=== PATIENT | male | born 2000 | race Asian ===

== ENCOUNTER 2020-11-27 10:26 | Emergency (ER) | payer OTHER ==
[~2020-11-27] VITALS: Ht 175.3 cm; Wt 61.2 kg
[2020-11-27 10:38] VITALS: BP 133/71
--- NOTE | 2020-11-27 10:41 | NUR ---
PT TAKEN TO LOBBY TO WAIT.
--- NOTE | 2020-11-27 12:18 | NUR ---
PATIENT AMBULATED TO BED 4.
--- NOTE | 2020-11-27 12:46 | NUR ---
NO NURSING INTERVENTIONS PROVIDED
--- NOTE | 2020-11-27 12:47 | NUR ---
Patient discharged with v/s stable. Written and verbal after care instructions given and explained. Patient verbalized understanding. Ambulatory with steady gait. All questions addressed prior to discharge. Advised to follow up with PMD.
== END 2020-11-27 12:47 | disposition home or self-care (01) ==
LOC: MED 10:26
DX: S09.90XA Unspecified injury of head, initial encounter (principal); W22.8XXA Striking against or struck by other objects, initial encounter; Y93.89 Activity, other specified; Y92.89 Other specified places as the place of occurrence of the external cause; Y99.8 Other external cause status
CPT/HCPCS: 99281